=== PATIENT | male | born 1995 | race American Indian/Alaskan Native ===

== ENCOUNTER 2016-08-14 09:09 | Emergency (ER) | payer OTHER ==
[2016-08-14 09:36] VITALS: BMI 28.7
[2016-08-14] MEDS ORDERED: Albuterol-Ipratrop 3 mg / 0.5 (3 ml) UD IH STA (09:51)
--- NOTE | 2016-08-14 09:51 | C.PDOC ---
History Of Present Illness 21M hx of asthma c/o sob and wheezing for the last 2 days which started w cold sx- cough and congestion. no fever. denies other pmh. Time Seen by Provider: 08/14/16 09:39 Chief Complaint (Nursing): Cough, Cold, Congestion Past Medical History Vital Signs: Last Vital Signs Temp 98.2 F 08/14/16 09:36 Pulse 102 H 08/14/16 09:36 Resp 20 08/14/16 09:36 BP 123/82 08/14/16 09:36 Pulse Ox 96 08/14/16 09:54 - Medical History PMH: Asthma Family History: States: Other (nc) - Social History Hx Alcohol Use: Yes Hx Substance Use: No Review Of Systems Constitutional: Negative for: Fever, Chills, Malaise ENT: Positive for: Nose Congestion Cardiovascular: Positive for: Chest Pain (only with cough) Respiratory: Positive for: Cough, Shortness of Breath, Wheezing Gastrointestinal: Negative for: Vomiting Neurological: Negative for: Weakness, Numbness, Headache Physical Exam - Physical Exam Appears: Well, Non-toxic, No Acute Distress Skin: Warm, Dry Head: Atraumatic Eye(s): bilateral: Normal Inspection Oral Mucosa: Moist Throat: No Erythema Neck: Normal ROM Cardiovascular: Rhythm Regular Respiratory: No Decreased Breath Sounds, No Accessory Muscle Use, No Rales, No Rhonchi, No Stridor, Wheezing Neurological/Psych: Oriented x3, Other (no focal deficits) ED Course And Treatment O2 Sat by Pulse Oximetry: 96 Disposition - Disposition Disposition: HOME/ ROUTINE Disposition Time: 10:39 Condition: GOOD - Clinical Impression Clinical Impression: Upper respiratory infection, Exacerbation of asthma
[2016-08-14] MEDS ORDERED: Albuterol-Ipratrop 3 mg / 0.5 (3 ml) UD ONE (09:56)
[2016-08-14 11:19] VITALS: BP 135/80; PULSE 77; RESP 18; TEMP 98.4; O2SAT 98
== END 2016-08-14 11:00 | disposition home or self-care (01) ==
LOC: C.ER 09:09
DX: J06.9 Acute upper respiratory infection, unspecified (principal); J45.901 Unspecified asthma with (acute) exacerbation